=== PATIENT | female | born 1995 | race Two or more races ===

== ENCOUNTER 2024-07-26 02:38 | Emergency (ER) | payer MEDICAID, OTHER ==
[~2024-07-26] VITALS: Ht 154.9 cm; Wt 68.6 kg
[2024-07-26 02:56] VITALS: BP 118/90; PULSE 91; RESP 18; TEMP 98.2
--- NOTE | 2024-07-26 03:11 | ED.PDOC ---
Psychiatric HPI Comments THIS IS A 29-YEAR-OLD FEMALE PRESENTS TO THE ED CHIEF COMPLAINT FEELING SPIRITS IN HER HOUSE. PATIENT REPORTS WAS IN REHAB 2 MONTHS AGO FOR NARCOTIC AND COCAINE USE RECENTLY RELAPSED 2 DAYS AGO WITH COCAINE. PATIENT STATES ABOUT 1 HOUR PRIOR TO TRIAGE ARRIVAL SHE WAS AT HOME PLAYING AND FELT SPIRITS IN THE HOUSE AND GRABBED HER SON'S HAND. PATIENT IS COOPERATIVE APPEARS TO BE ANXIOUS SHAKING HER LEG AND MOVING HER LEFT ARM. SHE IS ALERT AND ORIENTED X3. SHE DENIES SI BU[place] SA OR HI. SHE REPORTS NO HISTORY OF SUICIDAL ATTEMPTS. SHE DENIES ANY BEHAVIORAL HEALTH HOSPITALIZATIONS. DENIES CHEST PAIN, DIFFICULTY BREATHING, SHORTNESS OF BREATH Chief Complaint: Anxiety Time Seen by MD: 02:52 Reviewed Notes: Nurses Notes, Medications, Allergies Mode of Arrival: Ambulatory Past Medical History PAST MEDICAL HISTORY: Anxiety Surgical History: Appendectomy Family History Family History: Reviewed,noncontributory to illness Social History Smoker: Non-Smoker Alcohol: Denies ETOH Use Drugs: Cocaine Constitutional: denies: chills, diaphoresis, fatigue, fever, malaise, sweats, weakness, others EENTM: denies: blurred vision, double vision, ear bleeding, ear discharge, ear drainage, ear pain, ear ringing, eye pain, eye redness, hearing loss, mouth pain, mouth swelling, nasal discharge, nose bleeding, nose congestion, nose pain, photophobia, tearing, throat pain, throat swelling, voice changes, others Respiratory: denies: cough, hemoptysis, orthopnea, SOB at rest, shortness of breath, SOB with excertion, stridor, wheezing, others Cardiovascular: denies: chest pain, dizzy spells, diaphoresis, Dyspnea on exertion, edema, irregular heart beat, left arm pain, lightheadedness, palpitations, PND, syncope, others Gastrointestinal: denies: abdomen distended, abdominal pain, blood streaked bowels, constipated, diarrhea, dysphagia, difficulty swallowing, hematemesis, melena, nausea, poor appetite, poor fluid intake, rectal bleeding, rectal pain, vomiting, others Genitourinary: denies: abnormal vagina bleeding, burning, dyspareunia, dysuria, flank pain, frequency, hematuria, incontinence, pain, , vagina discharge, urgency, others Neurological: denies: dizziness, fainting, headache, left sided numbness, left sided weakness, numbness, paresthesia, pre-existing deficit, right sided numbness, right sided weakness, seizure, speech problems, tingling, tremors, weakness, others Musculoskeletal: denies: back pain, gout, joint pain, joint swelling, muscle pain, muscle stiffness, neck pain, others Integumetry: denies: bruises, change in color, change in hair/nails, dryness, laceration, lesions, lumps, rash, wounds, others Allergic/Immunocompromised: denies: Difficulty Healing, Frequent Infections, Hives, Itching, others Hematologic/Lymphatic: denies: anemia, blood clots, easy bleeding, easy bruising, swollen glands, others Endocrine: denies: excessive hunger, excessive sweating, excessive thirst, excessive urination, flushing, intolerance to cold, intolerance to heat, unexplained weight gain, unexplained weight loss, others Psychiatric: reports: anxiety, panic disorder; denies: bipolar disorder, depression, hopeless, schizophrenia, sleepless, suicidal, others Physical Exam General Appearance: No Apparent Distress, Normal HEENT: Pharynx Normal Neck: Full Range of Motion, Non-Tender Respiratory: Lungs Clear, No Respiratory Distress, Normal Breath Sounds Cardiovascular: No Edema, No JVD, No Murmur, No Gallop, Normal Peripheral Pulses, Regular Rate/Rhythm Breast Exam: Deferred Gastrointestinal: No Organomegaly, Non Tender, No Pulsatile Mass, Normal Bowel Sounds, Soft Genitalia: Deferred Pelvic: Deferred Rectal: Deferred Extremities: Normal capillary refill, Normal inspection, Normal range of motion, Non-tender, No pedal edema Musculoskeletal : Apperance: Normal 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 Was a procedure done?: No Psych Differential Dx Suicidal Differential Dx: Panic Disorder Intoxication Differential Dx: Drug-Induced Psychosis, Substance Abuse Disorder X-Ray, Labs, Meds, VS Vital Signs Date Time Temp Pulse Resp B/P (MAP) Pulse Ox O2 Delivery O2 Flow Rate FiO2 07/26/24 02:56 98.2 91 18 118/90 (99) 98 Current Medications Medications (Trade) Dose Ordered Sig/Dirk Route Start Time Stop Time Status Last Admin Lorazepam (Ativan Inj) 0.5 mg ONCE ONCE IM 07/26/24 03:30 07/26/24 03:31 DC 07/26/24 03:27 X-Ray, Labs, Meds, VS Comment PATIENT BROUGHT BACK TO [facility] PATIENT APPEARS VERY ANXIOUS ATIVAN 0.5 MG ORDERED IM PATIENT REFUSED RECOMMENDED P.O. PATIENT REFUSED. PATIENT REFUSED ALL TREATMENT OPTIONS. RECOMMENDED BEHAVIORAL CONSULT PATIENT REFUSED GOT AND WALKED OUT. PATIENT WALKED OUT TO TRIAGE WITH HER SISTER WHO WAS WAITING FOR HER. Time of 1ST Reevaluation: 03:40 Reevaluation 1ST: Unchanged Patient Education/Counseling: Diagnosis, Treatment, Prognosis, Need For Follow Up Family Education/Counseling: No Family Present Departure 1 Departure Time of Disposition: 03:45 Impression: Primary Impression: Cocaine use Disposition: 07 LEFT AGAINST MEDICAL ADVICE Condition: Stable Discharged With: Relative (Sibling) Critical Care Note Critical Care Time?: No Stability Stability form required: RENATE Martini Jul 26, 2024 03:10
[2024-07-26] MEDS: LORazepam 2MG/ML-1ML VIAL IM ONE (03:27)
[2024-07-26 03:39] VITALS: O2SAT 98
[2024-07-26 04:39] LABS: Cannabinoid Screen, Urine Pos (NEGATIVE)
[2024-07-26 04:50] LABS: Amphetamine Screen, Urine Pos (NEGATIVE); Barbiturate Scree,Urine Neg (NEGATIVE); Benzodiazephine Screen, Urine Neg (NEGATIVE); Cocaine Screen, Urine Pos (NEGATIVE); Opiate Scree,Urine Neg (NEGATIVE); Phencyclidine Screen, Urine Neg (NEGATIVE)
== END 2024-07-26 03:57 | disposition left against medical advice (07) ==
LOC: ER 02:38
DX: F14.90 Cocaine use, unspecified, uncomplicated (principal); Z90.49 Acquired absence of other specified parts of digestive tract
CPT/HCPCS: 80307; 96372; 99283; J2060